=== PATIENT | male | born 1955 | race Caucasian/White ===

== ENCOUNTER → 2024-07-13 12:26 | Outpatient (REF) | payer OTHER, SELFPAY | LOC: RAD 12:26 | PROVIDERS: ATTENDING PHYSICIAN Nurse Practitioner Family; FAMILY PHYSICIAN Internal Medicine Geriatric Medicine | DX: R09.89 Other specified symptoms and signs involving the circulatory and respiratory systems (principal); R05.3 Chronic cough | CPT/HCPCS: 71046 ==

== ENCOUNTER → 2024-07-17 13:09 | Outpatient (REF) | payer OTHER, SELFPAY | LOC: RAD 13:09 | PROVIDERS: ATTENDING PHYSICIAN Nurse Practitioner Family | DX: M25.572 Pain in left ankle and joints of left foot (principal) | CPT/HCPCS: 73610 ==

== ENCOUNTER → 2024-07-25 09:35 | Outpatient (REF) | payer OTHER, SELFPAY | LOC: RCS 09:35 | PROVIDERS: ATTENDING PHYSICIAN Nurse Practitioner Family | DX: R00.2 Palpitations (principal) | CPT/HCPCS: 93005 ==

== ENCOUNTER → 2024-08-02 06:33 | Outpatient (REF) | payer OTHER, SELFPAY | LOC: RAD 06:33 | PROVIDERS: ATTENDING PHYSICIAN Internal Medicine | DX: R11.2 Nausea with vomiting, unspecified (principal) | CPT/HCPCS: 74177; Q9967 ==

== ENCOUNTER 2024-08-03 19:48 | Emergency (ER) | payer OTHER, SELFPAY ==
[2024-08-03 19:58] VITALS: BP 174/102
[2024-08-03 20:30] LABS: Urine Albumin 2+ (Neg - Trace); Urine Bilirubin Negative (Negative); Urine Character Clear (Clear); Urine Color Yellow; Urine Glucose 4+ (Negative); Urine Ketone Negative (Negative); Urine Leukocyte Negative (Negative); Urine Nitrite Negative (Negative); Urine Occult Blood Negative (Negative); Urine Urobilinogen Negative (Neg - 1+)
[2024-08-03 20:43] LABS: Urine Red Blood Cell 0-2 /HPF (0-2); Urine Squamous Cell None seen /LPF (Few); Urine White Cell 0-2 /HPF (0-5)
[2024-08-04 01:00] VITALS: BP 173/95
[2024-08-04 01:08] VITALS: BMI 24.4
[2024-08-04] MEDS: TYLENOL 1000 MG PO (01:14)
[2024-08-04 01:15] LABS: % Basophils 0.3 % (0-2); % Eosinophils 0.1 % (0-6); % Immature Granulocytes 0.6 % (0-0.5); % Lymphocytes 7.4 % (20.5-51.1); % Monocytes 7.3 % (1.7-9.3); % Neutrophils 84.3 % (42.2-75.2); Absolute Immature Granulocytes 0.1 10^3/uL (0-0.05); Absolute Lymphocytes 0.8 10^3/uL (1.2-3.4); Absolute Monocytes 0.8 10^3/uL (0.1-0.6); Absolute Neutrophils 9.1 10^3/uL (1.4-6.5); Hematocrit 46.5 % (39.0-52.0); Hemoglobin 16.1 g/dL (13.0-18.0); Mean Corp Hgb Conc. 34.6 g/dL (33.0-37.0); Mean Corpuscular Hgb 29.5 pg (27.0-31.0); Mean Corpuscular Volume 85.2 fL (80.0-94.0); Mean Platelet Volume 11.1 fL (7.4-10.4); Nucleated Red Blood Cells % 0 % (-); Platelet Count 154 10^3/uL (130-400); Red Blood Cell Count 5.46 10^6/uL (4.70-6.10); Red Cell Dist. Width 13.8 % (11.5-14.5); White Blood Cell Count 10.8 10^3/uL (4.8-10.8)
[2024-08-04 01:31] LABS: ALT (SGPT) 19 U/L (0-50); AST (SGOT) 19 U/L (17-59); Albumin 4.2 g/dl (3.5-5.0); Alkaline Phosphatase 126 U/L (38-126); Blood Urea Nitrogen 27 mg/dl (9-20); Calcium 9.7 mg/dl (8.4-10.2); Carbon Dioxide 30 mmol/L (22-30); Chloride 98 mmol/L (98-107); Estimated Creatinine Clearance 63 ml/min; Glucose 306 mg/dl (70-99); Potassium 3.9 mmol/L (3.5-5.1); Sodium 138 mmol/L (135-145); Total Bilirubin 1.1 mg/dl (0.2-1.3); Total Protein 6.5 g/dl (6.3-8.2); eGFR > 60.00
--- NOTE | 2024-08-04 01:54 | ED.GENMED ---
History of Present Illness
General
Chief Complaint: Urinary Symptoms
Time Seen by Provider: 08/04/24 00:26
History of Present Illness
History of Present Illness:
68-year-old male with history of high blood pressure and diabetes presenting to the emergency department for concern of urinary retention. Patient had outpatient CT imaging completed on 08/02 reports nausea and vomiting suspected gastroparesis. He
was incidentally found to have 2000 cc of urine in his bladder with enlarged prostate and concern for bladder outlet obstruction. His doctor called him, told him to come to the hospital. Patient reports that he does not have any issues with
urinating. Notes that he urinated prior to arrival to the hospital. He denies any pain to the abdomen. On arrival to the hospital, was noted to have urine in the bladder, consistent with retention so Stern catheter placed. Patient denies any
known issues with his prostate. Denies additional acute medical complaints
Past History
Past History
ED Past Medical History: IDDM
ED Past Surgical History: None
Social History
Tobacco: Non-smoker
Alcohol: None
Personal:
Living: with family
Phy Exam
Physical Exam
Physical Exam:
General: Well-appearing, no clinical signs of dehydration, nontoxic and in no acute distress
HEENT: protecting airway
Neck: appears supple
CV: Normal heart rate
Resp: No accessory muscle use, no increased work of breathing
Abd: Soft and non-distended, no tenderness to palpation
Extremities: No deformities, no swelling
Neuro: alert, no focal neurologic deficit
: deferred
Rectal: deferred
Psych: Normal affect
Skin: Intact
Course
Orders/Labs/Results
Orders:
Orders
08/03/24 20:23
Catheter- Indwelling As Directed
Reason for insertion: Acute Retention
Size: 18
Type: Indwelling
Discontinue Date/Time: 08/06/24 0600
08/03/24 20:26
Urine Culture Reflexed from UA [Urinalysis Reflex To Culture] Urgent
Date Specimen was Collected: 08/03/24
Time Specimen was Collected: 20:24
Urine Microscopic Reflex Cult Urgent
08/04/24 01:06
Complete Blood Count/With Diff Urgent
Comprehensive Metabolic Panel Urgent
08/04/24 01:11
Acetaminophen [Tylenol] 1,000 mg .ROUTE .STK-MED ONE
08/04/24 01:12
Acetaminophen [Tylenol] 1,000 mg PO NOW STA
08/04/24 02:06
Tamsulosin [Flomax] 0.4 mg PO NOW STA
Abnormal Lab Results
08/03/24 08/04/24
20:26 01:06
MPV 11.1 H fL
(7.4-10.4)
Abs Immat Gran (auto) 0.1 H 10^3/uL
(0-0.05)
Absolute Neuts (auto) 9.1 H 10^3/uL
(1.4-6.5)
Absolute Lymphs (auto) 0.8 L 10^3/uL
(1.2-3.4)
Absolute Monos (auto) 0.8 H 10^3/uL
(0.1-0.6)
Immature Gran % 0.6 H %
(0-0.5)
Neutrophils % 84.3 H %
(42.2-75.2)
Lymphocytes % 7.4 L %
(20.5-51.1)
BUN 27 H mg/dl
(9-20)
Glucose 306 H mg/dl
(70-99)
Urine Glucose 4+ A
(Negative)
Urine Albumin (Reflex) 2+ A
(Neg - Trace)
08/04/24 01:06
08/04/24 01:06
Vital Signs
Initial and Last Documented VS:
Initial Vital Signs
Temp Pulse Resp BP Pulse Ox
98.4 F 76 20 174/102 99
08/03/24 19:58 08/03/24 19:58 08/03/24 19:58 08/03/24 19:58 08/03/24 19:58
Last Documented Vital Signs
Temp Pulse Resp BP Pulse Ox
98.4 F 80 18 151/96 97
08/03/24 19:58 08/04/24 02:14 08/04/24 02:14 08/04/24 02:14 08/04/24 02:14
MDM/Problems Addressed
MDM/Problems Addressed:
68-year-old male with history of hypertension and diabetes presenting for concern of urine retention. Vital signs are significant for high blood pressure.
On exam patient is resting comfortably, no acute distress or discomfort. Patient had a catheter placed in triage, drained 1200 cc of urine, reported to be clear. On my assessment, is now red in color. Did irrigate catheter, small clots, clearing
up. Patient reports that he has never had issues passing his urine, he only came to the hospital because his doctor told him to due to CT on 08/02 showing enlarged bladder and prostate. Patient does not want to keep the catheter in place.
Encouraged to the keeping in place secondary to concern that he will continue to retain if catheter is removed. He is agreeable to checking renal function and hemoglobin.
02:10 - Renal function and hemoglobin are within normal limits. Without concern for present acute kidney injury. Additional conversation had with patient and his friend in the examination room. Continued to stressed importance of keeping the
Stern catheter in with concern that he will again have retention upon discharge. Patient is refusing, understands that he may again retain. He notes that he will follow-up with a urologist and return to the emergency department if he has any
issues voiding or any pain to the abdomen or any pain with urination. Patient is competent to make his own decisions. Will start patient on Flomax for suspected prostatic hyperplasia. Information for urology provided. Strict return precautions
communicated and patient verbalized understanding
*Critical Care Note
Total Time (30-74mins, 75-104mins- exclusive of procedures): Not Applicable
ED Attending Note
-
Portions of this chart may have been created with voice recognition software.� Occasional wrong word or��sound alike� substitutions may have occurred due to the inherent limitations of voice recognition software.
Discharge Plan
Departure
Patient Disposition: Home (Routine Discharge)
Date of Disposition: 08/04/24
Time of Disposition: 02:13
Patient with high blood pressure during this ER visit?: Yes
Condition: Good
Discharge Problem:
Acute urinary retention, Hematuria
Instructions: Urinary retention - Discharge instructions, BLOOD PRESSURE
Prescriptions:
New
tamsulosin [Flomax] 0.4 mg capsule
0.4 mg PO DAILY 14 Days Qty: 14 0RF
No Action
multivitamin Tablet
1 tab PO DAILY
atorvastatin 20 mg Tablet
20 mg PO DAILY
sumatriptan succinate [Imitrex] 50 mg Tablet
50 mg PO PRN PRN (Reason: migraines)
pantoprazole 40 mg Tablet,Delayed Release (Dr/Ec)
40 mg PO DAILY
metformin 1,000 mg Tablet
1,000 mg PO BID
lisinopril 5 mg Tablet
5 mg PO DAILY
insulin degludec [Tresiba FlexTouch U-100] 100 unit/mL (3 mL) Insulin Pen
28 unit SC DAILY
Jardiance 25 mg Tablet
25 mg PO DAILY
polyethylene glycol 3350 17 GRAMS powder in packet
17 grams PO DAILY PRN (Reason: Constipation)
acetaminophen [Tylenol Extra Strength] 500 mg tablet
1,000 mg PO Q6HPRN PRN (Reason: mild pain) Qty: 1 0RF
ibuprofen 200 mg tablet
400 mg PO Q6HPRN PRN (Reason: moderate pain) Qty: 1 0RF
oxycodone 5 mg tablet
5 mg PO Q4HPRN PRN (Reason: breakthrough/severe pain) Qty: 10 0RF
Referrals:
Mookie Dixon MD [Active] -
Sudhir Borjas DO [Family Provider] -
Activity Restrictions/Additional Instructions:
You were seen in the emergency department for concern of urinary retention
You were found to have retained urine in your bladder and had a Stern catheter placed with appropriate drainage of the urine. We suspect that your retention is due to an enlarged prostate. We are starting you on Flomax for the enlarged prostate.
We recommended that you keep the catheter in until you see urology to ensure that you do not continue to retain urine. You refused to keep the catheter in. Please immediately return to the hospital with any issues urinating, or any lower abdominal
pain or distention. Please schedule an appointment as soon as possible with a urologist
Please follow-up closely with your primary care physician.
Return to the emergency department for any worsening of your symptoms, or any development of chest pain, difficulty breathing, abdominal pain with persistent vomiting and inability to tolerate food or liquid by mouth (concern for dehydration),
weakness, headache or confusion, fever greater than 100.4, or any additional symptoms that are concerning to you.
Thank you for choosing [facility].
Interventions
Interventions:
*Risk Screen - Suicide Last Done: 08/04/24 01:09
*General Assessment Last Done: 08/03/24 19:58
*Neglect/Abuse Screening Last Done: 08/04/24 01:09
*ED COVID-19 Vaccine History Last Done: 08/04/24 01:09
ED-Male Genitourinary Assessment Last Done: 08/04/24 01:00
Discharge Date and Time
Print Language: PASHTO
[2024-08-04 02:14] VITALS: BP 151/96
[2024-08-04] MEDS: FLOMAX 0.4 MG PO (02:15)
== END 2024-08-04 02:29 | disposition home or self-care (01) ==
LOC: EMR 19:48
PROVIDERS: Emergency Medicine; EMERGENCY PHYSICIAN Student in an Organized Health Care Education/Training Program; FAMILY PHYSICIAN Internal Medicine
DX: R33.9 Retention of urine, unspecified (principal); R31.9 Hematuria, unspecified; I10 Essential (primary) hypertension; E11.9 Type 2 diabetes mellitus without complications
CPT/HCPCS: 99283; 51702; 80053; 81003; 81015; 85025

== ENCOUNTER 2024-10-02 18:00 | Inpatient (IN) | payer OTHER, SELFPAY ==
--- NOTE | 2024-09-25 14:07 | PTCARENOTE ---
Blood sugar on 08/04/24 was [address] Yue at Dr. Hobbs's office aware.
[2024-10-02] VITALS (26 sets, daily range): BP systolic 121–164; BP diastolic 66–101; BMI 25.6
[2024-10-02] MEDS: NORMOSOL-R/PLASMALYTE-A 1000 IV (06:36)
[2024-10-02 06:39] LABS: Glucose - Point of Care 151 mg/dl (70-99)
--- NOTE | 2024-10-02 08:27 | W.PN.ADMIT ---
Progress Note - Admit
Progress Note - Admit
pt s/p TURP
admit for CBI
[2024-10-02 08:38] LABS: Glucose - Point of Care 137 mg/dl (70-99)
[2024-10-02] MEDS: VALIUM INJECTION 5 MG IV ×2 (08:45→19:51)
[2024-10-02 08:55] LABS: Hemoglobin 14.1 g/dL (13.0-18.0); Mean Corp Hgb Conc. 34.4 g/dL (33.0-37.0); Mean Corpuscular Hgb 29.1 pg (27.0-31.0); Mean Corpuscular Volume 84.7 fL (80.0-94.0); Mean Platelet Volume 11.2 fL (7.4-10.4); Platelet Count 132 10^3/uL (130-400); Red Blood Cell Count 4.84 10^6/uL (4.70-6.10); Red Cell Dist. Width 13.4 % (11.5-14.5); White Blood Cell Count 6.9 10^3/uL (4.8-10.8)
[2024-10-02] MEDS: EMLA CREAM 2 GRAM TOPICAL (08:55)
[2024-10-02 09:15] LABS: Blood Urea Nitrogen 23 mg/dl (9-20); Calcium 8.8 mg/dl (8.4-10.2); Carbon Dioxide 24 mmol/L (22-30); Chloride 105 mmol/L (98-107); Estimated Creatinine Clearance 87 ml/min; Glucose 147 mg/dl (70-99); Potassium 4.6 mmol/L (3.5-5.1); Sodium 138 mmol/L (135-145); eGFR > 60.00
[2024-10-02] MEDS: DILAUDID 0.5 MG IV (09:35)
[2024-10-02 10:41] LABS: Glucose - Point of Care 153 mg/dl (70-99)
[2024-10-02 12:50] LABS: Glucose - Point of Care 167 mg/dl (70-99)
[2024-10-02 14:45] LABS: Glucose - Point of Care 203 mg/dl (70-99)
[2024-10-02] MEDS: NOVOLOG vial 1 UNITS SC (15:03)
[2024-10-02] MEDS: NSS 1000 IV (15:41)
--- NOTE | 2024-10-02 17:40 | PTCARENOTE ---
Patient admitted from PACU post turp secondary to BPH.The patient is alert and oriented.He rates his pain at a 3 out of 10.Continuous bladder irrigation is infusing.Urine goes from punch color to jessie.The patient is in his bed with the call mays in
reach.
[2024-10-02 17:55] LABS: Glucose - Point of Care 299 mg/dl (70-99)
[2024-10-02] MEDS: GLUCOPHAGE 1000 MG PO (18:13)
[2024-10-02] MEDS: NOVOLOG FLEXPEN-LOW RESISTANCE 3 UNITS SC (18:38)
[2024-10-02] MEDS: EMLA CREAM 5 GRAM TOPICAL (19:50)
[2024-10-02] MEDS: VIBRAMYCIN 100 MG PO (19:50)
[2024-10-02] MEDS: COLACE 100 MG PO (19:50)
[2024-10-02] MEDS: URECHOLINE 25 MG PO (20:17)
[2024-10-02 21:48] LABS: Glucose - Point of Care 311 mg/dl (70-99)
[2024-10-03] MEDS: NSS 1000 IV (02:02)
[2024-10-03 03:15] VITALS: BP 119/64
--- NOTE | 2024-10-03 07:11 | W.PN.URO.CBU ---
Today's Communication / Plan
-
continue arredondo and cbi today
Assessment / Plan
-
s/p TURP
persistent hematuria
continue cbi- wean as able
UOOB to chair
follow labs
Diagnosis
-
Date of Service: October 03, 2024
-
Patient Diagnosis:
bph
urinary retention
Post Op Day:
TURP 10/02
Subjective
-
pt comfortable
urine still kennedy on moderate drip cbi
Objective
-
Vital Signs
Temp Pulse Resp BP Pulse Ox
97.8 F 78 17 119/64 92
10/03/24 03:15 10/03/24 03:15 10/03/24 03:15 10/03/24 03:15 10/03/24 03:15
Intake and Output
10/02/24 10/03/24 10/04/24
06:59 06:59 06:59
Intake Total 2330 / 2330
Output Total 4700 / 4700
Balance -2370 / -2370
Intake:
Oral fluids 490 / 490
IV fluids (Total) 1840 / 1840
NSS 80 / 80
Normosol 800 / 800
Output:
True Urine Output from CBI 4700 / 4700
Review of Systems
-
Constitutional: Fatigue
Respiratory: No Symptoms
Cardiac: No Symptoms
Abdomen/GI: No Symptoms
Physical Exam
-
General - no acute distress
Abdomen - soft, non-tender
Genitalia - normal- [address]
[2024-10-03 07:13] LABS: Glucose - Point of Care 244 mg/dl (70-99)
[2024-10-03 07:35] VITALS: BP 139/72
[2024-10-03 07:36] LABS: Hematocrit 36.9 % (39.0-52.0); Hemoglobin 12.7 g/dL (13.0-18.0); Mean Corp Hgb Conc. 34.4 g/dL (33.0-37.0); Mean Corpuscular Hgb 29.5 pg (27.0-31.0); Mean Corpuscular Volume 85.8 fL (80.0-94.0); Platelet Count 146 10^3/uL (130-400); Red Cell Dist. Width 13.3 % (11.5-14.5)
[2024-10-03 07:50] LABS: Blood Urea Nitrogen 41 mg/dl (9-20); Carbon Dioxide 27 mmol/L (22-30); Chloride 101 mmol/L (98-107); Estimated Creatinine Clearance 70 ml/min; Glucose 279 mg/dl (70-99); Potassium 4.2 mmol/L (3.5-5.1); Sodium 137 mmol/L (135-145); eGFR > 60.00
[2024-10-03] MEDS: PROTONIX 20 MG PO (08:20)
[2024-10-03] MEDS: COLACE 100 MG PO ×2 (08:20→21:22)
[2024-10-03] MEDS: LIPITOR 20 MG PO (08:20)
[2024-10-03] MEDS: GLUCOPHAGE 1000 MG PO ×2 (08:20→17:21)
[2024-10-03] MEDS: FARXIGA 10 MG PO (08:20)
[2024-10-03] MEDS: VIBRAMYCIN 100 MG PO ×2 (08:20→21:22)
[2024-10-03] MEDS: FLOMAX 0.4 MG PO (08:20)
[2024-10-03] MEDS: THERAGRAN 1 TABLET PO (08:20)
[2024-10-03] MEDS: ZESTRIL 10 MG PO (08:20)
[2024-10-03] MEDS: URECHOLINE 25 MG PO ×2 (08:20→21:22)
[2024-10-03] MEDS: LANTUS 0.58 UNITS SC (08:21)
[2024-10-03] MEDS: EMLA CREAM 2 GRAM TOPICAL ×2 (08:22→21:23)
[2024-10-03] MEDS: NOVOLOG FLEXPEN-LOW RESISTANCE 2 UNITS SC (08:22)
[2024-10-03 08:34] LABS: Glycohemoglobin (HgbA1c) 8.4 % (4.0-5.6)
--- NOTE | 2024-10-03 10:22 | CM ---
Cm met with patient in room. Patient confirmed demographics. Patient lives independently with partner. Patient does not have a history of VN< SNF or DME. Patient confirmed PCP. Patient uses [facility] on [address]. Patient has had a arredondo in the
past at home and feels he is able to handle it should he be discharged with a arredondo. CM will continue to follow.
PLAN: home no needs.
--- NOTE | 2024-10-03 11:27 | PN.DE.MGMTRT ---
Insulin Management
- -
10/03/2024: Diabetes Management Consult
68 year old male who presented for scheduled operative TURP on 10/02 due to hx of urinary retention and BPH.
PMH: HTN, HLD, Gastritis, Anxiety, urinary retention and BPH, kidney cyst, herniated disc, GERD, depression, MCCRAY, and T2DM.
Pt is awake, alert, oriented, sitting up in chair. POD #1 offers no complaints, able to discuss diabetes OP management
States he takes Tresiba 56-58 units in AM, Jardiance 25mg daily and Metformin 1000 mg BID prior to admission. A1C 8.4%, Cr 1.0 eGFR >60.
Current diabetes regimen includes: Tresiba 58 units, Metformin 1000mf BID and Djuhtgt02 mg.
Glucose elevated >200 since admission. 10/02 premeal range is 137 to 299, required 1-4 units of corrective insulin
Discussed with pt about optimal glucose control and need to add AC insulin therapy given uncontrolled diabetes and he was agreeable.
Will start NovoLog 5 units AC, 1st dose at lunch time, change diet from 2200 russ to 2000 russ diet. Cont low corrective with meals
Cont Tresiba 58 units in AM, Metformin 1000mg BID and Farxiga 10mg daily- resume Jardiance 25mg at discharge.
Pt seemed confused about consistent glucose testing at home, reports he checks his blood sugar once a day.
Will ask the Diabetes Nurse Educator to see pt today to go over instructions for insulin use and glucose testing at home.
Diabetes History
- -
Type of Diabetes: 2 requiring insulin
Pre-Admission Diabetes Regimen
10/03/24
06:41
Creatinine 1.0
Lab Results
Hemoglobin A1c 8.4 % (4.0-5.6) H 10/03/24 06:41
Insulin Pump Settings
IP Diabetes Regimen
10/02/24 10/02/24 10/02/24
12:47 14:44 17:54
Glucose
POC Glucose 167 H 203 H 299 H
10/02/24 10/03/24 10/03/24
21:47 06:41 07:11
Glucose 279 H
POC Glucose 311 H 244 H
Patient Education
[2024-10-03 11:40] VITALS: BP 144/75
[2024-10-03 11:41] LABS: Glucose - Point of Care 273 mg/dl (70-99)
[2024-10-03] MEDS: NOVOLOG FLEXPEN 5 UNITS SC ×2 (12:14→17:20)
[2024-10-03] MEDS: NOVOLOG FLEXPEN-LOW RESISTANCE 3 UNITS SC (12:15)
--- NOTE | 2024-10-03 15:22 | PTCARENOTE ---
10/03/2024 DIABETES EDUCATION
I met with Hai and his to review diabetes management. He states that his takes care of managing his diabetes, including nutrition and insulin injections. I encouraged patient to understand importance of managing DM himself, as his
may not be available at all times.
I educated on physiology of T2D, organ damage, managing with medications, monitoring BG, nutrition, activity, sleep and managing stress. I reinforced signs of hyperglycemia, hypoglycemia and hypoglycemia protocol; BS parameters and recommended HbA1c
goals, written material provided. Discussed nutrition, he drinks cranberry juice. I educated this juice is high in sugar, encouraged more water wang. with Jardiance s/e of UTI.
Discussed long and short acting insulin; onset/peak/duration. Discussed normal target glucose ranges and a monitoring schedule 15 minutes before each meal when prescribed Novolog, and preprandial AM and/or bedtime as recommended by MD. Also
recommended member and to ensure he does not confuse Tresiba with Novolog, as the pens are both blue. He and spouse verbalized understanding.
Encouraged patient to follow up with his PCP for post d/c appointment and to monitor medication and blood glucose levels.
Provided written material on diabetes management, glucometer and CGM instructions, insulin pen and needle tip insertion instructions, signs of hyper and hypoglycemia, glucose tracker, medic alert bracelet and outpatient DSME program. States he may
feel hypoglycemia at 75 mg/dL, encouraged him to monitor glucose levels more closely, especially prior to activity.
He declined glucometer sample or demonstration, states he has this at home, has used [employer] in the past but states his insurance won't cover this anymore. Encouraged him to discuss with PCP given that he is currently prescribed mealtime
insulin.
I educated and demonstrated on insulin injection technique, timing, and storage, Hai performed a self demonstration. I encouraged him to administer his own injections with RN supervision while admitted. Provided list of endocrinologists if
desired, to contact insurance company to verify in network status. Patient verbalized understanding.
[2024-10-03 15:35] VITALS: BP 122/61
[2024-10-03 17:01] LABS: Glucose - Point of Care 127 mg/dl (70-99)
[2024-10-03] MEDS: NOVOLOG FLEXPEN-LOW RESISTANCE SC (17:10)
[2024-10-03 21:48] LABS: Glucose - Point of Care 151 mg/dl (70-99)
[2024-10-03 23:00] VITALS: BP 134/67
[2024-10-04 05:24] LABS: Glucose - Point of Care 148 mg/dl (70-99)
--- NOTE | 2024-10-04 06:32 | W.PN.URO.CBU ---
Today's Communication / Plan
-
wean CBI
Assessment / Plan
-
s/p TURP
persistent hematuria- but improving
continue to wean CBI
check HGB
continue diabetic management
Diagnosis
-
Date of Service: October 04, 2024
-
Patient Diagnosis:
bph
urinary retention
Post Op Day:
TURP 10/02
Subjective
-
pt stable
urine now clear to light pink with min drip CBI
Objective
-
Vital Signs
Temp Pulse Resp BP Pulse Ox
98.1 F 70 18 134/67 95
10/03/24 23:00 10/03/24 23:00 10/03/24 23:00 10/03/24 23:00 10/03/24 23:00
Intake and Output
10/02/24 10/03/24 10/04/24
06:59 06:59 06:59
Intake Total 2330 / 2330 1230 / 1230
Output Total 4700 / 4700 4450 / 4450
Balance -2370 / -2370 -3220 / -3220
Intake:
Oral fluids 490 / 490 1230 / 1230
IV fluids (Total) 1840 / 1840
NSS 80 / 80
Normosol 800 / 800
Output:
True Urine Output from CBI 4700 / 4700 3250 / 3250
True urine output from hand 1200 / 1200
irrigation
Laboratory Results
10/03/24 06:41
Review of Systems
-
Constitutional: Fatigue
Respiratory: No Symptoms
Cardiac: No Symptoms
Abdomen/GI: No Symptoms
Physical Exam
-
General - no acute distress
Abdomen - soft, non-tender
Genitalia - [address]
[2024-10-04 07:23] LABS: Hematocrit 38.7 % (39.0-52.0); Hemoglobin 12.9 g/dL (13.0-18.0); Mean Corp Hgb Conc. 33.3 g/dL (33.0-37.0); Mean Corpuscular Hgb 28.9 pg (27.0-31.0); Mean Corpuscular Volume 86.8 fL (80.0-94.0); Mean Platelet Volume 11.4 fL (7.4-10.4); Platelet Count 134 10^3/uL (130-400); Red Blood Cell Count 4.46 10^6/uL (4.70-6.10); Red Cell Dist. Width 13.6 % (11.5-14.5); White Blood Cell Count 7.3 10^3/uL (4.8-10.8)
[2024-10-04 07:25] VITALS: BP 152/74
[2024-10-04 07:45] LABS: Glucose - Point of Care 144 mg/dl (70-99)
--- NOTE | 2024-10-04 08:15 | PN.DE.MGMTRT ---
Insulin Management
- -
10/04/2024: Diabetes Management Follow up
68 year old male who presented for scheduled operative TURP on 10/02 due to hx of urinary retention and BPH.
PMH: HTN, HLD, Gastritis, Anxiety, urinary retention and BPH, kidney cyst, herniated disc, GERD, depression, MCCRAY, and T2DM.
States he takes Tresiba 56-58 units in AM, Jardiance 25mg daily and Metformin 1000 mg BID prior to admission. A1C 8.4%, Cr 1.0 eGFR >60.
Current diabetes regimen includes: Tresiba 58 units, Metformin 1000mf BID and Mzxmemb41 mg.
Glucose elevated >200 since admission. Discussed with pt about optimal glucose control and need to add AC insulin therapy given uncontrolled diabetes and he was agreeable.
Pt is awake, alert, oriented, sitting up in chair. POD # 2 offers no complaints, able to discuss diabetes OP management
Glucose improved to 127 at dinner time after initiation of AC NovoLog. HS was 151, FBG 144 this AM.
Will make no changes to current regimen: NovoLog 5 units AC, Lantus 58 units in AM, Metformin 1000mg BID, Farxiga 10mg daily-(resume Jardiance 25mg at d/c).
Pt seemed confused about consistent glucose testing at home, reports he checks his blood sugar once a day.
Will ask the Diabetes Nurse Educator to see pt today to go over instructions for insulin use and glucose testing at home.
Diabetes History
- -
Type of Diabetes: 2 requiring insulin
Pre-Admission Diabetes Regimen
Lab Results
Hemoglobin A1c 8.4 % (4.0-5.6) H 10/03/24 06:41
Insulin Pump Settings
IP Diabetes Regimen
10/03/24 10/03/24 10/03/24
11:40 16:58 21:47
POC Glucose 273 H 127 H 151 H
10/04/24 10/04/24
05:23 07:43
POC Glucose 148 H 144 H
Meal type: Dinner
Meal type: Lunch
Meal type: Breakfast
Amount consumed: 100%
Amount consumed: 100%
Amount consumed: 100%
Patient Education
--- NOTE | 2024-10-04 08:25 | CM ---
CM reviewed medical records. Patient is not medically ready at this time for discharge. No needs anticipated.
[2024-10-04] MEDS: NOVOLOG FLEXPEN-LOW RESISTANCE SC ×2 (09:14→17:45)
[2024-10-04] MEDS: NOVOLOG FLEXPEN 5 UNITS SC ×3 (09:15→17:46)
[2024-10-04] MEDS: ZESTRIL 10 MG PO (09:16)
[2024-10-04] MEDS: COLACE 100 MG PO ×2 (09:16→19:40)
[2024-10-04] MEDS: VIBRAMYCIN 100 MG PO ×2 (09:16→19:41)
[2024-10-04] MEDS: URECHOLINE 25 MG PO ×2 (09:16→19:40)
[2024-10-04] MEDS: FARXIGA 10 MG PO (09:16)
[2024-10-04] MEDS: PROTONIX 20 MG PO (09:16)
[2024-10-04] MEDS: THERAGRAN 1 TABLET PO (09:17)
[2024-10-04] MEDS: EMLA CREAM 2 GRAM TOPICAL (09:17)
[2024-10-04] MEDS: LIPITOR 20 MG PO (09:17)
[2024-10-04] MEDS: FLOMAX 0.4 MG PO (09:17)
[2024-10-04] MEDS: GLUCOPHAGE 1000 MG PO ×2 (09:17→17:46)
[2024-10-04] MEDS: LANTUS 0.58 UNITS SC (11:47)
[2024-10-04 13:13] LABS: Glucose - Point of Care 153 mg/dl (70-99)
[2024-10-04] MEDS: NOVOLOG FLEXPEN-LOW RESISTANCE 1 UNITS SC (13:16)
[2024-10-04 15:08] VITALS: BP 144/76
[2024-10-04 17:44] LABS: Glucose - Point of Care 102 mg/dl (70-99)
[2024-10-04] MEDS: EMLA CREAM 5 GRAM TOPICAL (19:40)
[2024-10-04 21:24] LABS: Glucose - Point of Care 94 mg/dl (70-99)
[2024-10-04 23:02] VITALS: BP 146/76
--- NOTE | 2024-10-05 00:18 | PTCARENOTE ---
00:00 CBI stopped as ordered
[2024-10-05 07:05] LABS: Glucose - Point of Care 73 mg/dl (70-99)
[2024-10-05 07:19] VITALS: BP 153/83
--- NOTE | 2024-10-05 07:42 | W.PN.UPDATE ---
Update Note
Progress Note Update
pt's cbi off since midnight- kennedy in bag- but relative clear in tube- cath irrigated- no clots and clear
arredondo removed for TOV
will re-assess later today
--- NOTE | 2024-10-05 08:30 | PN.DE.MGMTRT ---
Insulin Management
- -
10/05/2024: Diabetes Management Follow up
68 year old male who presented for scheduled operative TURP on 10/02 due to hx of urinary retention and BPH.
PMH: HTN, HLD, Gastritis, Anxiety, urinary retention and BPH, kidney cyst, herniated disc, GERD, depression, MCCRAY, and T2DM.
States he takes Tresiba 56-58 units in AM, Jardiance 25mg daily and Metformin 1000 mg BID prior to admission. A1C 8.4%, Cr 1.0 eGFR >60.
Current diabetes regimen includes: Tresiba 58 units, Metformin 1000mf BID and Cxptoer26 mg.
Glucose elevated >200 since admission. Discussed with pt about optimal glucose control and need to add AC insulin therapy given uncontrolled diabetes and he was agreeable.
Pt is awake, alert, oriented, sitting up in chair. POD # 3 offers no complaints, able to discuss diabetes OP management
Glucose remains stable and in range, 102 to 153, FBG 73 this AM.
Will make no changes to current regimen: NovoLog 5 units AC, Lantus 58 units in AM, Metformin 1000mg BID, Farxiga 10mg daily-(resume Jardiance 25mg at d/c).
Pt was seen by Diabetes Nurse Educator and was provided instructions for insulin use and glucose testing at home.
Diabetes History
- -
Type of Diabetes: 2 requiring insulin
Pre-Admission Diabetes Regimen
Lab Results
Hemoglobin A1c 8.4 % (4.0-5.6) H 10/03/24 06:41
Insulin Pump Settings
IP Diabetes Regimen
10/04/24 10/04/24 10/04/24
13:11 17:37 21:23
POC Glucose 153 H 102 H 94
10/05/24
07:03
POC Glucose 73
Meal type: Lunch
Meal type: Breakfast
Amount consumed: 100%
Amount consumed: 100%
Patient Education
[2024-10-05 09:17] LABS: Glucose - Point of Care 159 mg/dl (70-99)
--- NOTE | 2024-10-05 09:27 | CM ---
Cm reviewed medical records. Patient is not medically clear for discharge. CM will continue to follow.
PLAN: home vs Home with VN.
[2024-10-05] MEDS: LANTUS 0.58 UNITS SC (09:28)
[2024-10-05] MEDS: NOVOLOG FLEXPEN-LOW RESISTANCE 1 UNITS SC (09:29)
[2024-10-05] MEDS: NOVOLOG FLEXPEN 5 UNITS SC ×2 (09:30→12:22)
[2024-10-05] MEDS: FARXIGA 10 MG PO (09:33)
[2024-10-05] MEDS: ZESTRIL 10 MG PO (09:33)
[2024-10-05] MEDS: VIBRAMYCIN 100 MG PO (09:33)
[2024-10-05] MEDS: GLUCOPHAGE 1000 MG PO ×2 (09:33→17:22)
[2024-10-05] MEDS: FLOMAX 0.4 MG PO (09:33)
[2024-10-05] MEDS: PROTONIX 20 MG PO (09:33)
[2024-10-05] MEDS: THERAGRAN 1 TABLET PO (09:33)
[2024-10-05] MEDS: URECHOLINE 25 MG PO (09:33)
[2024-10-05] MEDS: COLACE 100 MG PO (09:34)
[2024-10-05] MEDS: LIPITOR 20 MG PO (09:34)
[2024-10-05] MEDS: EMLA CREAM 5 GRAM TOPICAL (09:34)
[2024-10-05 12:09] LABS: Glucose - Point of Care 135 mg/dl (70-99)
[2024-10-05] MEDS: NOVOLOG FLEXPEN-LOW RESISTANCE SC ×2 (12:21→17:22)
[2024-10-05 15:23] VITALS: BP 164/87
--- NOTE | 2024-10-05 16:44 | W.PN.UPDATE ---
Update Note
Progress Note Update
pt voiding over the course of the day- kennedy colored- no clots or discomfort
pvr still around 400cc
arredondo replaced- 450cc drained- irrigated - small amount of old clot- urine very light kennedy colored
plan to discharge home with arredondo/leg bag
call on tuesday to schedule outpt TOV
[2024-10-05 17:07] LABS: Glucose - Point of Care 96 mg/dl (70-99)
[2024-10-05] MEDS: NOVOLOG FLEXPEN SC (17:21)
== END 2024-10-05 18:48 | disposition home or self-care (01) | DRG 713 ==
LOC: 2 SOUTH 18:00
PROVIDERS: ADMITTING PHYSICIAN Specialist
PROC: 0VT08ZZ Resection of Prostate, Via Natural or Artificial Opening Endoscopic (ICD-10-PCS; 2024-10-02)
PROC: 0TJB8ZZ Inspection of Bladder, Via Natural or Artificial Opening Endoscopic (ICD-10-PCS; 2024-10-02)
DX: N40.1 Benign prostatic hyperplasia with lower urinary tract symptoms (principal); N02.9 Recurrent and persistent hematuria with unspecified morphologic changes; R33.8 Other retention of urine
CPT/HCPCS: 52601; 88305; 80048; 82962; 83036; 85027

== ENCOUNTER 2025-01-25 09:10 | Emergency (ER) | payer OTHER, SELFPAY ==
[2025-01-25 09:14] VITALS: BP 119/75
[2025-01-25 09:57] VITALS: BMI 25.4
[2025-01-25 10:01] VITALS: BP 128/66
[2025-01-25 10:33] LABS: Hematocrit 41.5 % (39.0-52.0); Hemoglobin 13.4 g/dL (13.0-18.0); Mean Corp Hgb Conc. 32.3 g/dL (33.0-37.0); Mean Corpuscular Volume 83.3 fL (80.0-94.0); Nucleated Red Blood Cells % 0 % (-); Platelet Count 239 10^3/uL (130-400); Red Cell Dist. Width 15.7 % (11.5-14.5)
[2025-01-25 10:51] LABS: ALT (SGPT) 57 U/L (0-50); AST (SGOT) 25 U/L (17-59); Albumin 3.6 g/dl (3.5-5.0); Alkaline Phosphatase 243 U/L (38-126); Blood Urea Nitrogen 28 mg/dl (9-20); Calcium 9.3 mg/dl (8.4-10.2); Carbon Dioxide 27 mmol/L (22-30); Chloride 101 mmol/L (98-107); Estimated Creatinine Clearance 69 ml/min; Glucose 256 mg/dl (70-99); Lipase 66 U/L (23-300); Potassium 4.8 mmol/L (3.5-5.1); Sodium 135 mmol/L (135-145); Total Protein 6.5 g/dl (6.3-8.2); eGFR > 60.00
[2025-01-25] MEDS: CARAFATE SUSPENSION 1 GM PO (10:59)
[2025-01-25 11:00] VITALS: BP 122/65
[2025-01-25 11:01] LABS: Troponin I < 0.012 ng/ml
[2025-01-25] MEDS: TORADOL 15 MG IV (12:33)
[2025-01-25 13:00] VITALS: BP 104/67
--- NOTE | 2025-01-25 13:13 | ED.GENMED ---
History of Present Illness
General
Chief Complaint: Chest Pain
Source: patient
Time Seen by Provider: 01/25/25 09:57
History of Present Illness
History of Present Illness:
Note:
CHIEF COMPLAINT(S)
Epigastric pain and burning sensation.
HISTORY OF PRESENT ILLNESS
The patient is a 69-year-old male presenting with pain in the sub-xiphoid region, which began on Tuesday morning following the consumption of cottage cheese and tomatoes. The patient experienced vomiting shortly after eating and described a
significant burning sensation in the chest. This episode left the patient unable to sleep and resulted in persistent discomfort described as epigastric pain. The patient mentioned occasional episodes of esophageal spasm in the past, which are
infrequent and often resolved with the consumption of carbonated beverages. The patient has not had any recent endoscopies, with the last one performed 20 years ago. The present symptoms appear to be exacerbated when lying down, though physical
activities or the act of eating do not alter the discomfort level. Additionally, the patient denies current dyspnea but feels limited, and reports no leg swelling. He also describes tenderness upon palpation in the epigastric area.
SOCIAL HISTORY
The patient denies the use of alcohol and smoking.
REVIEW OF SYSTEMS
- Gastrointestinal: Persistent epigastric pain and burning sensation following ingestion of certain foods.
- Respiratory: Feels limited but denies current dyspnea.
- Sleep: Difficulty sleeping due to increased congestion when lying down.
PHYSICAL EXAM
General: Alert, no acute distress.
Skin: Warm, dry.
Head: Normocephalic, atraumatic.
Neck: Supple, trachea midline.
Eyes, Ears, Nose, Mouth and Throat: Oral mucosa moist.
Cardiovascular: Normal peripheral perfusion, No edema. Heart: Regular rhythm, no murmurs.
Respiratory: Respirations are non-labored, lungs clear to auscultation.
Gastrointestinal: Abdomen has tenderness in the epigastric area, no distension, normal bowel sounds, no palpable masses.
Back: Normal range of motion, Normal alignment.
Musculoskeletal: Normal ROM, normal strength.
Neurological: Alert and oriented to person, place, time, and situation, No focal neurological deficit observed.
Psychiatric: Cooperative, appropriate mood & affect.
PLAN
1. Perform cardiac evaluation to rule out any underlying cardiac issues.
2. Conduct gallbladder assessment to exclude gallbladder pathology.
3. Administer medication to attempt to coat the esophagus and alleviate irritation.
DIFFERENTIAL DIAGNOSIS
The Differential Diagnosis includes, in no particular order and is not limited to:
1. Gastroesophageal reflux disease (GERD)
2. Esophageal spasm
3. Peptic ulcer disease
4. Gallbladder disease (cholecystitis or gallstones)
5. Cardiac ischemia
6. Gastritis
7. Hiatal hernia
8. Pancreatitis
9. Esophagitis
10. Functional dyspepsia
EKG
My independent EKG interpretation is:
- Time of EKG: [Not mentioned]
- Rhythm: Normal sinus rhythm
- Heart Rate: [Not mentioned]
- [place] Interval: [Not mentioned]
- QRS Duration: [Not mentioned]
- QT Interval: [Not mentioned]
- Bruno: Left axis deviation
- Abnormalities: [Left ventricular hypertrophy suggested by 'left-hand care', likely indicating left ventricular strain]
- T Wave Progression: Poor R-wave progression
- ST Segment Changes: No acute ischemic changes
- T Wave Inversions: [Not mentioned]
- Arrhythmias: [Not mentioned]
Disposition:
SUMMARY OF ENCOUNTER
The patient is a 69-year-old male who presented with epigastric and sub-xiphoid pain, accompanied by epigastric tenderness. An EKG was performed and interpreted as non-ischemic. The plan included evaluating for any potential intra-abdominal
pathology, including consideration for a CT scan. Laboratory tests, including troponin levels, were ordered and are currently pending. The case was signed out to Dr. Sorensen for further management pending these results.
ASSESSMENT
The differential diagnosis for the epigastric pain includes gastroesophageal reflux disease (GERD), peptic ulcer disease, gastritis, pancreatitis, and esophagitis, amongst others.
PLAN
1. Perform a comprehensive cardiac evaluation to rule out cardiac issues.
2. Consider a CT scan or other appropriate imaging to assess for intra-abdominal pathology.
3. Follow up on pending troponin and other laboratory results to aid in diagnosis and management.
INDEPENDENT REVIEW OF LABS AND INTERPRETATION OF TESTS
My independent interpretation of the EKG indicates a non-ischemic finding.
MEDICAL DECISION MAKING
-Complexity of Data Reviewed: DDx includes gastroesophageal reflux disease (GERD), esophageal spasm, peptic ulcer disease, gallbladder disease (cholecystitis or gallstones), cardiac ischemia, gastritis, hiatal hernia, pancreatitis, esophagitis, and
functional dyspepsia.
-Data:
Category 1
The following testing was considered: Troponin levels and CT scan to evaluate for any intra-abdominal pathology.
Category 2
My independent interpretation of the EKG indicates non-ischemic findings.
DIAGNOSIS
Epigastric pain, unspecified (R10.13)
Possible gastroesophageal reflux disease (GERD) (K21.9)
Possible peptic ulcer disease (K27.9)
Past History
Past History
ED Past Medical History: IDDM
ED Past Surgical History: None
Social History
Tobacco: Non-smoker
Alcohol: None
Personal:
Living: with family
Phy Exam
Physical Exam
Physical Exam:
.
Scores
Heart Score for Chest Pain Patients
STEMI patient?: No
History: Slightly or Non-Suspicious
ECG: Normal
Age: >/= 65 years
Risk Factors: 1 or 2 Risk Factors
Troponin: </= Normal Limit
Heart Score for Chest Pain Patients: 3
Heart Score Risk: 2.5% MACE over next 6 weeks
Course
Orders/Labs/Results
Orders:
Orders
01/25/25
Electrocardiogram (*1) Stat
Comment: DONE
01/25/25 09:11
EKG [Electrocardiogram (*1)] Urgent
Reason for Study: Chest Pain
01/25/25 09:12
EKG- Treatment ONCE
01/25/25 10:12
CR Chest - 2 Views Urgent
Comment:
Reason For Exam: cp
01/25/25 10:13
Pantoprazole [Protonix IV] 40 mg IV NOW STA
Sucralfate Suspension [Carafate Suspension] 1 gm PO NOW STA
US Abdomen Complete/Upper Urgent
Comment:
Reason For Exam: upper abd pain
01/25/25 10:25
Complete Blood Count/With Diff Urgent
Comprehensive Metabolic Panel Urgent
Lipase Urgent
Troponin I Urgent
01/25/25 12:24
Ketorolac [Toradol] 15 mg IV NOW STA
01/25/25 12:28
CT Abd/pelvis W Iv Cont Urgent
Comment:
Reason For Exam: upper abd pain
01/25/25 13:42
Troponin I Urgent
Abnormal Lab Results
01/25/25
10:25
MCH 26.9 L pg
(27.0-31.0)
MCHC 32.3 L g/dL
(33.0-37.0)
RDW 15.7 H %
(11.5-14.5)
MPV 10.6 H fL
(7.4-10.4)
Absolute Lymphs (auto) 0.6 L 10^3/uL
(1.2-3.4)
Neutrophils % 82.1 H %
(42.2-75.2)
Lymphocytes % 8.5 L %
(20.5-51.1)
BUN 28 H mg/dl
(9-20)
Glucose 256 H mg/dl
(70-99)
ALT 57 H U/L
(0-50)
Alkaline Phosphatase 243 H U/L
(38-126)
01/25/25 10:25
01/25/25 10:25
Vital Signs
Initial and Last Documented VS:
Initial Vital Signs
Temp Pulse Resp BP Pulse Ox
98.6 F 91 18 119/75 97
01/25/25 09:14 01/25/25 09:14 01/25/25 09:14 01/25/25 09:14 01/25/25 09:14
Last Documented Vital Signs
Temp Pulse Resp BP Pulse Ox
98.5 F 86 16 108/53 94
01/25/25 10:10 01/25/25 16:02 01/25/25 15:15 01/25/25 16:02 01/25/25 15:15
*Pulse Oximetry
SaO2: 96
Oxygen Mode of Delivery: Room air
Patient hypoxic: no
*Critical Care Note
Total Time (30-74mins, 75-104mins- exclusive of procedures): Not Applicable
ED Attending Note
-
Portions of this chart may have been created with voice recognition software.� Occasional wrong word or��sound alike� substitutions may have occurred due to the inherent limitations of voice recognition software.
Discharge Plan
Departure
Patient Disposition: Home (Routine Discharge)
Date of Disposition: 01/25/25
Time of Disposition: 16:10
Patient with high blood pressure during this ER visit?: No
Discharge Problem:
Chest pain
Instructions: Chest Pain CBC Follow Up
Prescriptions:
New
pantoprazole [Protonix] 40 mg tablet,delayed release (DR/EC)
40 mg PO DAILY Qty: 30 0RF
No Action
multivitamin Tablet
1 tab PO DAILY
atorvastatin 20 mg Tablet
20 mg PO DAILY
sumatriptan succinate [Imitrex] 50 mg Tablet
50 mg PO PRN PRN (Reason: migraines)
metformin 1,000 mg Tablet
1,000 mg PO BID
lisinopril 5 mg Tablet
10 mg PO DAILY
insulin degludec [Tresiba FlexTouch U-100] 100 unit/mL (3 mL) Insulin Pen
58 unit SC DAILY
Jardiance 25 mg Tablet
25 mg PO DAILY
tamsulosin [Flomax] 0.4 mg capsule
0.4 mg PO DAILY 14 Days Qty: 14 0RF
pantoprazole 20 mg Tablet,Delayed Release (Dr/Ec)
20 mg PO DAILY
bethanechol chloride 25 mg tablet
25 mg PO BID Qty: 60 5RF
Referrals:
UNKNOWN - PT NOT,INTERVIEWE [Family Provider]
Activity Restrictions/Additional Instructions:
PPlease avoid strenuous or exertional activity until cleared by cardiology. Please see cardiology in the next 48 hours for reevaluation. Return immediately for worsening pain, shortness breath, palpitations, sweating, nausea, weakness of any kind,
numbness, tingling or any other concerns.
Cardiology has been notified and a follow up appointment has been requested. Someone will call you on the next business day to schedule a follow up appointment.
Further workup may also include an endoscopy if symptoms persist. Continue your Protonix. Stick to a bland diet.
Interventions
Interventions:
*Risk Screen - Suicide Last Done: 01/25/25 09:14
*General Assessment Last Done: 01/25/25 09:14
*Neglect/Abuse Screening Last Done: 01/25/25 09:18
*ED- Fall Risk Assessment Last Done: 01/25/25 16:37
*ED COVID-19 Vaccine History Last Done: 01/25/25 09:14
*Nursing Disposition Last Done: 01/25/25 16:37
ED- Cardiac Assessment Last Done: 01/25/25 10:07
Discharge Date and Time
Discharge Date/Time: 01/25/25 16:38
Print Language: BAHAMIAN
[2025-01-25 14:25] LABS: Troponin I < 0.012 ng/ml
[2025-01-25 15:05] VITALS: BP 124/65
[2025-01-25 16:02] VITALS: BP 108/53
== END 2025-01-25 16:38 | disposition home or self-care (01) ==
LOC: EMR 09:10
PROVIDERS: EMERGENCY PHYSICIAN Emergency Medicine
DX: R07.9 Chest pain, unspecified (principal); E11.9 Type 2 diabetes mellitus without complications; Z79.4 Long term (current) use of insulin; Z79.84 Long term (current) use of oral hypoglycemic drugs
CPT/HCPCS: 99284; 96374; 96375; 71046; 74177; 76700; 80053; 83690; 84484; 85025; 93005; Q9967